=== PATIENT | male | born 1985 | race Caucasian/White ===

== ENCOUNTER 2016-12-22 20:58 | Emergency (ER) | payer BC, OTHER ==
[2016-12-22 21:08] VITALS: TEMP 98.1; O2SAT 98
[2016-12-22] MEDS ORDERED: IBUPROFEN 600 MG TAB PO ONE (22:14)
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
[2016-12-22 23:37] VITALS: BP 118/68; PULSE 70; RESP 14
== END 2016-12-22 23:37 | disposition home or self-care (01) ==
DX: S30.0XXA Contusion of lower back and pelvis, initial encounter (principal); V13.4XXA Pedal cycle driver injured in collision with car, pick-up truck or van in traffic accident, initial encounter; Y92.410 Unspecified street and highway as the place of occurrence of the external cause; Y99.8 Other external cause status; Y93.89 Activity, other specified